=== PATIENT | female | born 1935 | race Caucasian/White ===

== ENCOUNTER 2017-01-09 14:58 | Emergency (ER) | payer MEDICARE, BC ==
[~2017-01-09 14:58] MED LIST: ATEN-100 PO; BACT800T5 PO; ZOFR4TAB3 SL
[2017-01-09 15:05] VITALS: BP 130/74; PULSE 94; RESP 15; TEMP 98.4; O2SAT 98
--- NOTE | 2017-01-09 15:09 | PD ---
Physical Exam Time Seen by Provider: 15:08 Narrative 81 y/o female with one day of n/v/d. Her has similar symptoms. Vital signs reviewed. Seen at triage desk. Awaiting bed placement. Data Data Last Documented VS Vital Signs Date Time Temp Pulse Resp B/P Pulse Ox O2 Delivery O2 Flow Rate FiO2 01/09/17 15:05 98.4 94 15 130/74 98 MDM Medical Record Reviewed: Yes Supervised Visit with TRISTAN: Varinder Teague Jan 09, 2017 15:09
== END 2017-01-09 17:30 | disposition left against medical advice (07) ==
LOC: NED 14:58
DX: R11.2 Nausea with vomiting, unspecified (principal); R19.7 Diarrhea, unspecified; Z53.21 Procedure and treatment not carried out due to patient leaving prior to being seen by health care provider
CPT/HCPCS: 99281

== ENCOUNTER 2017-01-11 11:30 | Emergency (ER) | payer MEDICARE, BC ==
[~2017-01-11] VITALS: Ht 162.6 cm; Wt 63.0 kg
[2017-01-11 11:31] VITALS: BP 147/70; PULSE 77; RESP 16; TEMP 99.3; O2SAT 95
--- NOTE | 2017-01-11 11:50 | PD ---
Physical Exam Time Seen by Provider: 11:48 Narrative 81yo F c/o bodyaches, cough, SOB, subjective fever x5days. Reports vomiting, diarrhea. Denies abd pain at this time. Decreased appetite and hasn't eaten in 3 days. Hx diverticulitis. Patient seen in triage. VS reviewed. Awaiting bed placement. Data Data Last Documented VS Vital Signs Date Time Temp Pulse Resp B/P Pulse Ox O2 Delivery O2 Flow Rate FiO2 01/11/17 11:31 99.3 77 16 147/70 95 Room Air MDM Supervised Visit with TRISTAN: Nevaeh Agrawal Jan 11, 2017 11:50
[2017-01-11 11:54] VITALS: BP 130/76; PULSE 81; RESP 14; TEMP 98.8; O2SAT 95
[2017-01-11] MEDS ORDERED: Atenolol PO (12:00)
--- NOTE | 2017-01-11 12:02 | PD ---
HPI . cold symptoms and GI upset for 5 days Chief Complaint: Cold / Flu Symptoms Time Seen by Provider: 12:02 Travel History International Travel<30 days: No Contact w/Intl Traveler<30days: No Traveled to known affect area: No History of Present Illness HPI 81-year-old female with hypertension and hyperlipidemia here with complaints of cold symptoms with a slightly dry/productive cough, diarrhea, intense sore throat and nausea and vomiting for the past 5 days. Patient tells me that she' s had these symptoms and has been trying to deal with them at home. Her [facility] to [facility] due to some other issues, and she decided to check in to be seen. She currently denies any pain or discomfort. She tells me that she's had diarrhea and has not been able to eat secondary vomiting. She says she has had difficulty keeping food down. She has not had any vomiting or diarrhea this morning, and tells me that it was too early in the day to experience her symptoms. She does report diffuse aches and pains in her bones. PFSH Past Medical History High Cholesterol: Yes Diverticulitis: Yes Hypertension: Yes ?: Not Past Surgical History Other Surgery: Yes (KIDNEY?) Social History Alcohol Use: No Tobacco Use: No Substance Use: No Allergies-Medications (Allergen,Severity, Reaction): Coded Allergies: Morphine (Verified Allergy, Unknown, 01/11/17) Reported Meds & Prescriptions Reported Meds & Active Scripts Active Zofran Odt (Ondansetron Odt) 4 Mg Tab 4 Mg SL Q8HR PRN Reported [Atenolol] 25 Mg PO DAILY Review of Systems General / Constitutional: No: Fever Eyes: No: Visual changes HENT: Positive: Sore Throat, No: Headaches Cardiovascular: No: Chest Pain or Discomfort Respiratory: Positive: Cough, No: Shortness of Breath Gastrointestinal: Positive: Nausea, Vomiting, Diarrhea, No: Abdominal Pain Genitourinary: No: Urgency, Frequency, Dysuria, Hesitancy, Dribbling Musculoskeletal: No: Pain Skin: No Rash Neurologic: No: Weakness Psychiatric: No: Depression Endocrine: No: Polydipsia Hematologic/Lymphatic: No: Easy Bruising Physical Exam Narrative GENERAL: AAO x 3, no acute distress, Well-nourished, well-developed patient. Comfortable, nontoxic appearance SKIN: Warm and dry. No visible rashes or bruising. HEAD: Normocephalic and atraumatic. EYES: No scleral icterus. No injection or drainage. EOM intact, PERRLA ENT: No nasal drainage noted. Mucous membranes pink. Airway patent. Slightly dry mucous membranes and no posterior pharynx erythema, edema or exudate. TMs normal bilaterally. NECK: Supple, trachea midline. No JVD. No lymphadenopathy CARDIOVASCULAR: Regular rate and rhythm without murmurs, gallops, or rubs. RESPIRATORY: Breath sounds equal bilaterally. No accessory muscle use. No rhonchi or rales. GASTROINTESTINAL: Abdomen soft, non-tender, nondistended. EXTREMITIES: No cyanosis or edema. Full range of motion of all extremities. No obvious bony deformity. BACK: Nontender without obvious deformity. No CVA tenderness. PSYCH: AAO x 3, normal affect. Data Data Last Documented VS Vital Signs Date Time Temp Pulse Resp B/P Pulse Ox O2 Delivery O2 Flow Rate FiO2 01/11/17 11:54 98.8 81 14 130/76 95 Room Air Orders Complete Blood Count With Diff (01/11/17 12:07) Comprehensive Metabolic Panel (01/11/17 12:07) Lipase (01/11/17 12:07) Iv Access Insert/Monitor (01/11/17 12:07) NPO (01/11/17 12:07) Ondansetron Inj (Zofran Inj) (01/11/17 12:15) Sodium Chlor 0.9% 1000 Ml Inj (Ns 1000 M (01/11/17 12:07) Chest, Single Ap (01/11/17 12:07) Acetaminophen (Tylenol) (01/11/17 13:15) Labs Laboratory Tests Test 01/11/17 12:15 White Blood Count 4.7 TH/MM3 Red Blood Count 4.87 MIL/MM3 Hemoglobin 14.4 GM/DL Hematocrit 41.5 % Mean Corpuscular Volume 85.2 FL Mean Corpuscular Hemoglobin 29.4 PG Mean Corpuscular Hemoglobin 34.6 % Concent Red Cell Distribution Width 13.5 % Platelet Count 213 TH/MM3 Mean Platelet Volume 8.0 FL Neutrophils (%) (Auto) 68.9 % Lymphocytes (%) (Auto) 17.5 % Monocytes (%) (Auto) 12.7 % Eosinophils (%) (Auto) 0.4 % Basophils (%) (Auto) 0.5 % Neutrophils # (Auto) 3.2 TH/MM3 Lymphocytes # (Auto) 0.8 TH/MM3 Monocytes # (Auto) 0.6 TH/MM3 Eosinophils # (Auto) 0.0 TH/MM3 Basophils # (Auto) 0.0 TH/MM3 CBC Comment DIFF FINAL Differential Comment Sodium Level 135 MEQ/L Potassium Level 3.8 MEQ/L Chloride Level 98 MEQ/L Carbon Dioxide Level 31.3 MEQ/L Anion Gap 6 MEQ/L Blood Urea Nitrogen 16 MG/DL Creatinine 0.92 MG/DL Estimat Glomerular Filtration 59 ML/MIN Rate Random Glucose 103 MG/DL Calcium Level 9.5 MG/DL Total Bilirubin 0.5 MG/DL Aspartate Amino Transf 30 U/L (AST/SGOT) Alanine Aminotransferase 26 U/L (ALT/SGPT) Alkaline Phosphatase 101 U/L Total Protein 7.3 GM/DL Albumin 3.5 GM/DL Lipase 290 U/L MDM Medical Decision Making Medical Screen Exam Complete: Yes Emergency Medical Condition: Yes Medical Record Reviewed: Yes Differential Diagnosis Viral gastroenteritis, less likely influenza, IBS, osteoarthritis Narrative Course 81-year-old female here with complaints of what appears to be a viral gastroenteritis. I will check labs to make sure she doesn't have any type of electrolyte abnormality or significant anemia or elevated white count. I will also check a chest x-ray to rule out any type of pneumonia. In regards to her bone pain, I've advised her that she will need to follow-up with her primary care provider, as I cannot find any acute explanation as to why she is having this. It may be possible that she is experiencing body aches, and has some difficulty describing it. Labs have been reviewed and are negative for any acute abnormality. Patient was given 1 L of fluids and Zofran. Tylenol given for pain. I initially ordered a urinalysis, however patient was unable to provide a sample while here in the ED. I canceled that as she does not have any urinary symptoms. Last Impressions Chest X-Ray 01/11/17 1207 Signed Impressions: Service Date/Time: Wednesday, January 11, 2017 12:26 - CONCLUSION: No acute disease. Rancho Edmond Jr., MD Ultimately I recommend follow-up primary care provider. I provided her with Zofran upon discharge. Patient verbalized understanding of instructions, questions were answered, and thanked me for their care. I advised them if their condition worsens, please return to the nearest emergency room for further care. Diagnosis Primary Impression: Viral intestinal infection Patient Instructions: General Instructions Additional Instructions: Please return to emergency department if your symptoms return or worsen. Follow up with your primary care provider. Take medications as prescribed. As we discussed, you will need to follow-up with your primary care doctor for further workup and recommendations. Med/Other Pt SpecificInfo: Prescription(s) given Scripts Ondansetron Odt (Zofran Odt)4 Mg Tab4 Mg SL Q8HR PRN (Nausea/Vomiting) #14 TAB Ref 0 Prov:Melissa Young MD 01/11/17 Disposition: 01 DISCHARGE HOME Condition: Stable Aimee Charles Jan 11, 2017 12:02
[2017-01-11] MEDS ORDERED: SODIUM CHLOR 0.9% 1000 ML INJ 1,000 ML IV SCH (12:07)
[2017-01-11] MEDS ORDERED: ONDANSETRON HCL 4 MG/2 ML VIAL IVP ONE (12:15)
[2017-01-11 12:29] LABS: AUTOMATED NEUTROPHIL # 3.2 TH/MM3 (1.8-7.7); BASOPHIL % 0.5 % (0.0-2.0); EOSINOPHIL % 0.4 % (0.0-4.0); HEMATOCRIT 41.5 % (35.0-46.0); HEMO FLAGS DIFF FINAL; LYMPH % 17.5 % (9.0-44.0); LYMPHOCYTE # 0.8 TH/MM3 (1.0-4.8); MEAN CELL VOLUME 85.2 FL (80.0-100.0); MEAN CORPUSCULAR HEMOGLOBIN 29.4 PG (27.0-34.0); MEAN CORPUSCULAR HGB CONC 34.6 % (32.0-36.0); MONO % 12.7 % (0.0-8.0); NEUT % 68.9 % (16.0-70.0); PLATELET COUNT 213 TH/MM3 (150-450); RED BLOOD COUNT 4.87 MIL/MM3 (4.00-5.30); RED CELL DISTRIBUTION WIDTH 13.5 % (11.6-17.2); WHITE BLOOD COUNT 4.7 TH/MM3 (4.0-11.0)
[2017-01-11 12:45] LABS: ANION GAP 6 MEQ/L (5-15); AST (GOT) 30 U/L (15-37); BICARBONATE 31.3 MEQ/L (21.0-32.0); BLOOD UREA NITROGEN 16 MG/DL (7-18); CHLORIDE 98 MEQ/L (98-107); GLOMERULAR FILTRATION RATE 59 ML/MIN (>89); POTASSIUM 3.8 MEQ/L (3.5-5.1); SODIUM (NA) 135 MEQ/L (136-145)
[2017-01-11 12:47] LABS: ALT (GPT) 26 U/L (10-53)
[2017-01-11 12:48] LABS: ALKALINE PHOSPHATASE 101 U/L (45-117); TOTAL BILIRUBIN ADULT 0.5 MG/DL (0.2-1.0)
--- NOTE | 2017-01-11 13:06 | RADRPT ---
EXAM DATE/TIME: 01/11/2017 12:26 [facility] COMPARISON: No previous studies available for comparison. INDICATIONS : Short of breath. MEDICAL HISTORY : Hypertension. Hypercholesterolemia. SURGICAL HISTORY : None. ENCOUNTER: Initial ACUITY: 2 days PAIN SCORE: 0/10 LOCATION: Bilateral chest FINDINGS: A single view of the chest demonstrates the lungs to be symmetrically aerated without evidence of mas s, infiltrate or effusion. The cardiomediastinal contours are unremarkable. Osseous structures are intact. CONCLUSION: No acute disease. Rancho Edmond Jr., MD on January 11, 2017 at 13:00 Board Certified Radiologist. This report was verified electronically.
[2017-01-11] MEDS ORDERED: ACETAMINOPHEN 500 MG CPLT PO ONE (13:15)
[2017-01-11] MEDS ORDERED: ZOFR4TAB3 SL (13:20)
== END 2017-01-11 13:43 | disposition home or self-care (01) ==
LOC: NEPD 11:30
DX: B34.9 Viral infection, unspecified (principal); I10 Essential (primary) hypertension
CPT/HCPCS: 71010; 80053; 83690; 85025; 96361; 96374; 99284; J2405; J7030

== ENCOUNTER 2017-07-05 13:07 | Emergency (ER) | payer MEDICARE, BC ==
[~2017-07-05] VITALS: Ht 154.9 cm; Wt 65.0 kg
[~2017-07-05 13:07] MED LIST changes: -ATEN-100 PO; +Atenolol PO; -BACT800T5 PO
[2017-07-05 13:11] VITALS: BP 185/98; PULSE 73; RESP 18; TEMP 98.3; O2SAT 97
[2017-07-05 13:44] LABS: AUTOMATED NEUTROPHIL # 4.8 TH/MM3 (1.8-7.7); BASOPHIL % 0.6 % (0.0-2.0); EOSINOPHIL # 0.2 TH/MM3 (0-0.4); EOSINOPHIL % 2.6 % (0.0-4.0); HEMATOCRIT 41.1 % (35.0-46.0); HEMO FLAGS DIFF FINAL; LYMPH % 26.5 % (9.0-44.0); MEAN CORPUSCULAR HEMOGLOBIN 30.4 PG (27.0-34.0); MEAN CORPUSCULAR HGB CONC 34.5 % (32.0-36.0); MONO % 6.9 % (0.0-8.0); NEUT % 63.4 % (16.0-70.0); PLATELET COUNT 323 TH/MM3 (150-450); RED BLOOD COUNT 4.67 MIL/MM3 (4.00-5.30); RED CELL DISTRIBUTION WIDTH 13.2 % (11.6-17.2); WHITE BLOOD COUNT 7.7 TH/MM3 (4.0-11.0)
[2017-07-05 13:58] LABS: BICARBONATE 27.4 MEQ/L (21.0-32.0); POTASSIUM 4.2 MEQ/L (3.5-5.1)
--- NOTE | 2017-07-05 14:22 | PD ---
HPI Chief Complaint: ENT Complaint Time Seen by Provider: 14:06 Travel History International Travel<30 days: No Contact w/Intl Traveler<30days: No Traveled to known affect area: No History of Present Illness HPI 81 YO F with PMH of HTN presents to the ED for evaluation of "probably about a week" day history of right ear pain. Pain rated 9/10, described as intermittent , radiating to the scalp, lasting a few seconds before resolving spontaneously. No known injury to the area. No rashes. Not worsened by chewing or talking. She states that she recently had eye surgery and thought that the pain was caused by that. Endorses tearing of bilateral eyes s/p surgery. Endorses photophobia. Denies vision changes. Endorses sore throat. Denies cough. Denies F/C, N/V. She saw her parts identification technician who ruled out ocular problem. She saw the PCP who evaluated her and told her to come to the ED. PFSH Past Medical History High Cholesterol: Yes Diverticulitis: Yes Hypertension: Yes Past Surgical History Other Surgery: Yes (KIDNEY?) Social History Alcohol Use: No Tobacco Use: No Substance Use: No Allergies-Medications (Allergen,Severity, Reaction): Coded Allergies: morphine (Unverified Allergy, Unknown, 07/05/17) Reported Meds & Prescriptions Reported Meds & Active Scripts Active Naprosyn (Naproxen) 500 Mg Tab 500 Mg PO BID Reported [Atenolol] 25 Mg PO DAILY Review of Systems Except as stated in HPI: all other systems reviewed are Neg Physical Exam Narrative GENERAL: Well-nourished, well-developed well-appearing white female in no acute distress. SKIN: Warm and dry. HEAD: Normocephalic. Atraumatic. EYES: No scleral icterus. No injection or drainage. PERRLA. EOMI. ENT: Right tympanic membrane cleated buys cerumen. Ear irrigation reveals Pearly gupta tympanic membranes bilaterally. Clear effusion in the right tympanic membrane. Nasal mucosa is moist. Oropharynx without erythema, edema or exudate. NECK: Supple, trachea midline. No JVD or lymphadenopathy. No preauricular lymphadenopathy. CARDIOVASCULAR: Regular rate and rhythm without murmurs, gallops, or rubs. RESPIRATORY: Breath sounds clear and equal bilaterally. No accessory muscle use. GASTROINTESTINAL: Abdomen soft, non-tender, nondistended. + Bowel sounds MUSCULOSKELETAL: No cyanosis, or edema. NEUROLOGICAL: Awake and alert. Cranial nerves II through XII intact. Motor and sensory grossly within normal limits. Five out of 5 muscle strength in all muscle groups. Normal speech. BACK: Nontender without obvious deformity. No CVA tenderness. Data Data Last Documented VS Vital Signs Date Time Temp Pulse Resp B/P (MAP) Pulse Ox O2 Delivery O2 Flow Rate FiO2 07/05/17 15:21 07/05/17 13:11 98.3 73 18 97 Room Air Orders Orders Complete Blood Count With Diff (07/05/17 13:21) Basic Metabolic Panel (Bmp) (07/05/17 13:21) Westergren Sedimentation Rate (07/05/17 13:21) Ct Brain W/O Iv Contrast(Rout) (07/05/17 ) Ketorolac Inj (Toradol Inj) (07/05/17 14:30) Ed Discharge Order (07/05/17 14:57) Labs Laboratory Tests Test 07/05/17 13:29 White Blood Count 7.7 TH/MM3 Red Blood Count 4.67 MIL/MM3 Hemoglobin 14.2 GM/DL Hematocrit 41.1 % Mean Corpuscular Volume 88.0 FL Mean Corpuscular Hemoglobin 30.4 PG Mean Corpuscular Hemoglobin Concent 34.5 % Red Cell Distribution Width 13.2 % Platelet Count 323 TH/MM3 Mean Platelet Volume 7.4 FL Neutrophils (%) (Auto) 63.4 % Lymphocytes (%) (Auto) 26.5 % Monocytes (%) (Auto) 6.9 % Eosinophils (%) (Auto) 2.6 % Basophils (%) (Auto) 0.6 % Neutrophils # (Auto) 4.8 TH/MM3 Lymphocytes # (Auto) 2.0 TH/MM3 Monocytes # (Auto) 0.5 TH/MM3 Eosinophils # (Auto) 0.2 TH/MM3 Basophils # (Auto) 0.0 TH/MM3 CBC Comment DIFF FINAL Differential Comment Erythrocyte Sedimentation Rate 20 mm/hr Blood Urea Nitrogen 15 MG/DL Creatinine 0.80 MG/DL Random Glucose 88 MG/DL Calcium Level 9.7 MG/DL Sodium Level 139 MEQ/L Potassium Level 4.2 MEQ/L Chloride Level 106 MEQ/L Carbon Dioxide Level 27.4 MEQ/L Anion Gap 6 MEQ/L Estimat Glomerular Filtration Rate 69 ML/MIN MDM Medical Decision Making Medical Screen Exam Complete: Yes Emergency Medical Condition: Yes Differential Diagnosis otitis media versus FB versus temporal arteritis versus TMJ versus trigeminal neuralgia versus other Narrative Course 81-year-old female PMH of HTN presents to the ED for evaluation of about a week' s history of 9/10, intermittent, sharp right ear pain. Pain radiates to the scalp, last a few seconds before resolving spontaneously. Endorses photophobia. She denies known injury, rash, vision changes, fevers, chills. She states that she recently had eye surgery and thought that maybe the pain was caused by that. She's had a little bit of tearing bilaterally status post the surgery. Her parts identification technician ruled out an ocular problem. Sent by her PCP today. Vitals reviewed. Patient's hypertensive on presentation. Physical exam reveals a pleasant white female in no acute distress. She has a cerumen impaction over the right tympanic membrane. This was flushed out and revealed Pearly gupta tympanic membranes with a clear effusion behind the right side. Ocular motions are intact. No tenderness to palpation over the preauricular lymph node or course of the temporal artery. Patient was administered 30 mg of Toradol IM. No concerning abnormalities of the CBC or CMP. ESR is within normal limits. CT of the brain reveals no acute intracranial pathology. I suspect this is trigeminal neuralgia, possibly caused by irritation secondary to her recent eye surgery. I explained the results of the workup to the patient and her family. I prescribed a short course of anti-inflammatories. He is instructed to follow-up with her primary care or the research anthropologist. She indicated understanding of instructions. She is stable and discharged home. Procedures Procedure Narrative Cerumen impaction removal: A 50:50 mix of warm water and hydrogen peroxide was used to flush the right ear canal. A large cerumen ball was flushed. Exam reveals pearly gupta tympanic membrane with mild clear effusion. No signs of infection. Patient tolerated the procedure well. Diagnosis Primary Impression: Acute facial pain Additional Impression: Impacted cerumen of right ear Referrals: Jose Norton MD Patient Instructions: General Instructions, Trigeminal Neuralgia (ED) Additional Instructions: Rest, hydrate. Return to normal, gentle activity as tolerated. Take medications as prescribed, as needed for pain. Follow up with the center medical specialist for further evaluation. Return to the ED for worsening symptoms or any urgent or emergent medical condition. Med/Other Pt SpecificInfo: Prescription(s) given Scripts Naproxen (Naprosyn) 500 Mg Tab 500 MG PO BID for Pain, #15 TAB 0 Refills Prov: Myles Leonard MD 07/05/17 Disposition: 01 DISCHARGE HOME Condition: Stable Jeanie Medina Jul 05, 2017 14:22
--- NOTE | 2017-07-05 14:25 | RADRPT ---
EXAM DATE/TIME: 07/05/2017 13:56 [facility] COMPARISON: No previous studies available for comparison. INDICATIONS : Acute onset right sided headache RADIATION DOSE: 56.77 CTDIvol (mGy) MEDICAL HISTORY : Hypertension. Diverticulitis. SURGICAL HISTORY : None. ENCOUNTER: Initial ACUITY: 2 days PAIN SCALE: 9/10 LOCATION: Right cranial TECHNIQUE: Multiple contiguous axial images were obtained of the head. Using automated exposure control and adj ustment of the mA and/or kV according to patient size, radiation dose was kept as low as reasonably a chievable to obtain optimal diagnostic quality images. DICOM format image data is available electro nically for review and comparison. FINDINGS: There is moderately pronounced white matter hypodensity throughout the periventricular regions bilate rally, somewhat worse on the left than the right. There is no evidence of intracranial mass or hemorr michelle. There is nothing to suggest acute infarction. Ventricles are symmetric and normal. The extracra nial structures are benign and intact. CONCLUSION: Prominent chronic appearing white matter disease. No acute intracranial findings Patrick Orozco MD on July 05, 2017 at 14:21 Board Certified Radiologist. This report was verified electronically.
[2017-07-05] MEDS ORDERED: KETOROLAC TROMETHAMINE 60 MG/2 ML (IM) VIAL IM ONE (14:30)
[2017-07-05] MEDS ORDERED: NAPR500 PO (14:56)
== END 2017-07-05 15:22 | disposition home or self-care (01) ==
LOC: NEPE 13:07
DX: R51 Headache (principal); H61.21 Impacted cerumen, right ear; J02.9 Acute pharyngitis, unspecified; I10 Essential (primary) hypertension; E78.00 Pure hypercholesterolemia, unspecified; Z87.19 Personal history of other diseases of the digestive system; Z79.899 Other long term (current) drug therapy
CPT/HCPCS: 69210; 70450; 80048; 85025; 85652; 96372; 99285; J1885